=== PATIENT | female | born 1980 | race African-American/Black ===

== ENCOUNTER 2023-08-24 11:53 | Emergency (ER) | payer MEDICAID ==
[~2023-08-24] VITALS: Ht 172.7 cm; Wt 60.0 kg
[2023-08-24 12:00] VITALS: O2SAT 98
[2023-08-24 13:08] LABS: BASOPHILS % 0.2 % (0.0-2.0); EOSINOPHILS % 0.1 % (0.0-5.0); HEMATOCRIT. 40.9 % (36.0-48.0); LYMPHOCYTES % 30.5 % (20.0-50.0); MEAN CORPUSCULAR HEMOGLOBIN 28.9 pg (28.0-32.0); MEAN CORPUSCULAR HGB CONC 31.8 g/dL (31.0-37.0); MEAN PLATELET VOLUME 8.6 fl (7.4-10.4); MONOCYTES % 4.5 % (2.0-8.0); NEUTROPHILS % 64.7 % (40.0-76.0); PLATELET 311 x1000/uL (130-400); RED CELL DISTRIBUTION WIDTH 16.3 % (11.6-14.6); WHITE BLOOD COUNT 7.4 x1000/uL (4.5-11.0)
[2023-08-24 13:21] LABS: HCG SCREEN NEGATIVE
[2023-08-24 13:29] LABS: ALANINE AMINOTRANSFERASE 105 IU/L (10-49); ALBUMIN 3.8 g/dL (3.2-4.8); ASPARTATE AMINOTRANSFERASE 446 IU/L (<34); BILIRUBIN TOTAL 0.5 mg/dL (0.1-1.0); CALCIUM 8.4 mg/dL (8.7-10.4); CARBON DIOXIDE 24 mEq/L (21-32); CHLORIDE 115 mEq/L (98-107); CREATININE 0.6 mg/dL (0.6-1.0); ETHANOL BLOOD 396 mg/dL (<10); GLUCOSE 91 mg/dL (70-105); POTASSIUM 3.3 mEq/L (3.5-5.1); PROTEIN TOTAL 7.5 g/dL (6.0-8.3); SODIUM 149 mEq/L (136-145); UREA NITROGEN BLOOD 11 mg/dL (9-23)
[2023-08-24] MEDS ORDERED: HALOPERIDOL LACTATE 5MG/ML VIAL IM ONE ×2 (13:45→15:00)
[2023-08-24] MEDS ORDERED: LORAZEPAM 2MG/ML INJ IM ONE ×2 (13:45→15:00)
[2023-08-24] MEDS ORDERED: LORAZEPAM 2MG/ML UD SYRINGE IM NR ×2 (14:00→16:15)
[2023-08-24 14:21] LABS: CLARITY URINE CLEAR (CLEAR); COLOR URINE YELLOW (YELLOW); GLUCOSE URINE NEGATIVE (NEGATIVE); KETONES URINE NEGATIVE (NEGATIVE); LEUKOCYTE ESTERASE URINE NEGATIVE (NEGATIVE); NITRITE URINE NEGATIVE (NEGATIVE); OCCULT BLOOD URINE NEGATIVE (NEGATIVE); PROTEIN URINE NEGATIVE (NEGATIVE); SPECIFIC GRAVITY URINE 1.002 (1.005-1.030); UROBILINOGEN URINE 0.2 E.U./dL (0.2-1.0)
[2023-08-24 14:58] LABS: *AMPHETAMINES SCREEN URINE NEGATIVE (NEGATIVE); *BARBITURATES SCREEN URINE NEGATIVE (NEGATIVE); *BENZODIAZEPINES SCREEN URINE NEGATIVE (NEGATIVE); *COCAINE SCREEN URINE NEGATIVE (NEGATIVE); CANNABINOID URINE SCREEN NEGATIVE (NEGATIVE); ECSTASY MDMA SCREEN URINE NEGATIVE (NEGATIVE); METHADONE URINE SCREEN Neg (NEGATIVE); OPIATES URINE SCREEN NEGATIVE (NEGATIVE); PHENCYCLIDINE URINE SCREEN NEGATIVE (NEGATIVE)
[2023-08-24] MEDS ORDERED: SODIUM CHLORIDE 0.9% 1,000 ML IV ONE (16:15)
[2023-08-24] MEDS ORDERED: POTASSIUM CHLORIDE 20MEQ/PACKET PO ONE (21:15)
[2023-08-25] MEDS ORDERED: QUETIAPINE FUMARATE 50MG TABLET PO ONE (02:45)
[2023-08-25] MEDS ORDERED: ACETAMINOPHEN 325MG TABLET PO STA (21:25)
[2023-08-25] MEDS: QUETIAPINE FUMARATE 50MG TABLET PO SCH (21:40)
[2023-08-26] MEDS: QUETIAPINE FUMARATE 50MG TABLET PO SCH (09:00)
[2023-08-26 13:32] VITALS: BP 128/82; PULSE 74; RESP 16; TEMP 98
== END 2023-08-26 13:33 ==
LOC: ER 11:53
DX: R46.2 Strange and inexplicable behavior (principal); Z20.822 Contact with and (suspected) exposure to COVID-19; Z91.148 Patient's other noncompliance with medication regimen for other reason
CPT/HCPCS: 80053; 80305; 81003; 81025; 80320; 84703; 85025; 36415; 96372; 99291; 87426; J1630; J2060; J7030; Z7610 ×2; G0480

== ENCOUNTER 2025-01-12 18:04 | Emergency (ER) | payer BC, MEDICAID ==
[~2025-01-12] VITALS: Ht 165.1 cm; Wt 92.0 kg
[2025-01-12 18:05] VITALS: TEMP 37; O2SAT 99
[2025-01-12] MEDS: TETANUS, DIPHTHERIA, PERTUSSIS VAC/PF 0.5ML (>10YR OLD) IM ONE (19:00)
[2025-01-12 19:12] VITALS: BP 143/93; PULSE 92; RESP 18
[2025-01-12] MEDS: HYDROCODONE/ACETAMINOPHEN 5/325MG TABLET PO ONE (19:12)
== END 2025-01-12 20:40 | disposition home or self-care (01) ==
LOC: ER 18:06
DX: S01.01XA Laceration without foreign body of scalp, initial encounter (principal); F10.129 Alcohol abuse with intoxication, unspecified; R51.9 Headache, unspecified; F12.10 Cannabis abuse, uncomplicated; Z86.59 Personal history of other mental and behavioral disorders; W01.0XXA Fall on same level from slipping, tripping and stumbling without subsequent striking against object, initial encounter; Y93.89 Activity, other specified; Y92.480 Sidewalk as the place of occurrence of the external cause; Y99.8 Other external cause status; Y90.9 Presence of alcohol in blood, level not specified
CPT/HCPCS: 90715; 99284

== ENCOUNTER 2025-01-13 13:33 | Emergency (ER) | payer MEDICAID ==
[~2025-01-13] VITALS: Ht 172.7 cm; Wt 82.0 kg
[2025-01-13 13:36] VITALS: O2SAT 98
[2025-01-13 14:46] LABS: BASOPHILS % 0.5 % (0.0-2.0); EOSINOPHILS % 0.2 % (0.0-5.0); HEMATOCRIT. 40.7 % (36.0-48.0); HEMOGLOBIN. 13.2 g/dL (12.0-16.0); MEAN CORPUSCULAR HEMOGLOBIN 30.5 pg (28.0-32.0); MEAN CORPUSCULAR HGB CONC 32.3 g/dL (31.0-37.0); MEAN CORPUSCULAR VOLUME 94.2 fL (81.0-99.0); MEAN PLATELET VOLUME 8.1 fl (7.4-10.4); MONOCYTES % 5.4 % (2.0-8.0); NEUTROPHILS % 53.9 % (40.0-76.0); PLATELET 336 x1000/uL (130-400); RED BLOOD CELL COUNT 4.33 mill/uL (4.2-5.4); RED CELL DISTRIBUTION WIDTH 16.4 % (11.6-14.6); WHITE BLOOD COUNT 4.8 x1000/uL (4.5-11.0)
[2025-01-13 14:57] LABS: CHLORIDE 111 mEq/L (98-107); HCG SCREEN NEGATIVE; POTASSIUM 4.8 mEq/L (3.5-5.1); SODIUM 141 mEq/L (136-145)
[2025-01-13 14:58] LABS: CALCIUM 8.9 mg/dL (8.7-10.4); CARBON DIOXIDE 20 mEq/L (21-32)
[2025-01-13 15:00] LABS: PROTHROMBIN TIME 10.4 sec (9.6-11.0)
[2025-01-13 15:03] LABS: CREATININE 0.8 mg/dL (0.6-1.0); GLUCOSE 96 mg/dL (70-105); UREA NITROGEN BLOOD 8 mg/dL (9-23)
[2025-01-13 15:12] LABS: ETHANOL BLOOD 379 mg/dL (<10)
[2025-01-13] MEDS: TETANUS, DIPHTHERIA, PERTUSSIS VAC/PF 0.5ML (>10YR OLD) IM ONE (17:20)
[2025-01-13] MEDS: ACETAMINOPHEN 325MG TABLET PO NR (18:07)
[2025-01-13 18:46] VITALS: BP 110/74; PULSE 76; RESP 16; TEMP 36.6; O2SAT 100
== END 2025-01-13 18:50 | disposition home or self-care (01) ==
LOC: ER 13:48
DX: S00.03XA Contusion of scalp, initial encounter (principal); F10.129 Alcohol abuse with intoxication, unspecified; F17.200 Nicotine dependence, unspecified, uncomplicated; F20.9 Schizophrenia, unspecified; Z88.2 Allergy status to sulfonamides; X58.XXXA Exposure to other specified factors, initial encounter; Y93.89 Activity, other specified; Y92.89 Other specified places as the place of occurrence of the external cause; Y99.8 Other external cause status; Y90.8 Blood alcohol level of 240 mg/100 ml or more
CPT/HCPCS: 80048; 80320; 84703; 85025; 85610; 36415; 70450; 90715; 90471; 99285; Z7610 ×2; A4606; G0480

== ENCOUNTER 2025-01-25 00:12 | Emergency (ER) | payer MEDICAID ==
[~2025-01-25] VITALS: Ht 165.1 cm; Wt 68.0 kg
[2025-01-25 00:18] VITALS: O2SAT 96
[2025-01-25 01:19] LABS: BASOPHILS % 0.4 % (0.0-2.0); EOSINOPHILS % 0.5 % (0.0-5.0); HEMOGLOBIN. 14.1 g/dL (12.0-16.0); MEAN CORPUSCULAR HEMOGLOBIN 30.9 pg (28.0-32.0); MEAN CORPUSCULAR HGB CONC 32.7 g/dL (31.0-37.0); MEAN CORPUSCULAR VOLUME 94.6 fL (81.0-99.0); MEAN PLATELET VOLUME 8.2 fl (7.4-10.4); MONOCYTES % 7.6 % (2.0-8.0); NEUTROPHILS % 51.5 % (40.0-76.0); PLATELET 253 x1000/uL (130-400); RED BLOOD CELL COUNT 4.54 mill/uL (4.2-5.4); RED CELL DISTRIBUTION WIDTH 17.3 % (11.6-14.6); WHITE BLOOD COUNT 5.6 x1000/uL (4.5-11.0)
[2025-01-25 01:29] LABS: CHLORIDE 110 mEq/L (98-107); POTASSIUM 4.2 mEq/L (3.5-5.1); SODIUM 143 mEq/L (136-145)
[2025-01-25 01:30] LABS: CALCIUM 8.7 mg/dL (8.7-10.4); CARBON DIOXIDE 20 mEq/L (21-32)
[2025-01-25 01:35] LABS: CREATININE 0.6 mg/dL (0.6-1.0); GLUCOSE 103 mg/dL (70-105)
[2025-01-25 01:36] LABS: UREA NITROGEN BLOOD 7 mg/dL (9-23)
[2025-01-25 01:54] LABS: ETHANOL BLOOD 441 mg/dL (<10)
[2025-01-25 01:55] LABS: HCG SCREEN NEGATIVE
[2025-01-25 04:07] VITALS: BP 117/80; PULSE 57; RESP 11; TEMP 36.7; O2SAT 100
== END 2025-01-25 04:46 | disposition home or self-care (01) ==
LOC: ER 00:12
DX: F10.129 Alcohol abuse with intoxication, unspecified (principal); F17.200 Nicotine dependence, unspecified, uncomplicated; F20.9 Schizophrenia, unspecified; Z88.2 Allergy status to sulfonamides; Y90.8 Blood alcohol level of 240 mg/100 ml or more
CPT/HCPCS: 36415; 80048; 80320; 84703; 85025; 99285; G0480